=== PATIENT | female | born 1975 | race Two or more races ===

== ENCOUNTER 2018-01-27 03:35 | Emergency (ER) | payer OTHER ==
[~2018-01-27] VITALS: Ht 160 cm; Wt 68.0 kg
[2018-01-27] MEDS ORDERED: ZOFRAN4 MG PO (07:07)
[2018-01-27] MEDS ORDERED: ZANTAC300 MG PO (07:07)
== END 2018-01-27 07:27 ==
LOC: ER 03:35
DX: K52.89 Other specified noninfective gastroenteritis and colitis (principal); E86.0 Dehydration